=== PATIENT | male | born 1985 | race Two or more races ===

== ENCOUNTER 2024-05-06 21:54 | Emergency (ER) | payer SELFPAY ==
[2024-05-06 23:15] VITALS: BP 138/91; PULSE 80
== END 2024-05-06 23:30 | disposition home or self-care (01) ==
LOC: FB.ED 21:54
DX: I11.9 Hypertensive heart disease without heart failure (principal); E78.00 Pure hypercholesterolemia, unspecified; Z79.899 Other long term (current) drug therapy
CPT/HCPCS: 82947; 99283; 99284

== ENCOUNTER 2024-12-27 22:33 | Emergency (ER) | payer SELFPAY ==
[2024-12-27] MEDS: Ketorolac 30 MG/ML SDV IM ONE (23:03)
[2024-12-28] VITALS: BP 143/79; PULSE 90
== END 2024-12-27 23:59 | disposition home or self-care (01) ==
LOC: FB.ED 22:33
DX: S93.601A Unspecified sprain of right foot, initial encounter (principal); I10 Essential (primary) hypertension; E78.00 Pure hypercholesterolemia, unspecified; Z79.899 Other long term (current) drug therapy; X50.1XXA Overexertion from prolonged static or awkward postures, initial encounter; Y93.89 Activity, other specified
CPT/HCPCS: 73630; 96372; 99283; J1885